=== PATIENT | female | born 1985 | race Caucasian/White ===

== ENCOUNTER 2024-05-15 13:36 | Outpatient (CLI) | payer OTHER | END 2024-05-15 14:35 | disposition home or self-care (01) | LOC: NST 13:36 | PROVIDERS: ATTEND Obstetrics & Gynecology Maternal & Fetal Medicine | DX: Z34.83 Encounter for supervision of other normal pregnancy, third trimester (principal) ==

== ENCOUNTER 2024-06-25 10:40 | Outpatient (CLI) | payer OTHER | END 2024-06-25 11:37 | disposition home or self-care (01) | LOC: NST 10:40 | PROVIDERS: ATTEND Obstetrics & Gynecology Gynecology | DX: Z34.83 Encounter for supervision of other normal pregnancy, third trimester (principal) ==

== ENCOUNTER 2024-07-02 10:06 | Inpatient (IN) | payer OTHER ==
[~2024-07-02] VITALS: Ht 157.5 cm; Wt 87.1 kg
[2024-07-18 16:36] VITALS: BP 125/70
[2024-07-18 16:55] VITALS: BP 125/70
[2024-07-18 16:55] LABS: HEMATOCRIT 30.2 % (36.0-45.00); HEMOGLOBIN 10.2 g/dL (12.0-15.00); MEAN CELL VOLUME 86.9 fL (80.00-100.00); MEAN CORPUSCULAR HEMOGLOBIN 29.2 pg (27.00-32.0); MEAN CORPUSCULAR HGB CONC 33.7 g/dl (32.0-36.0); PLATELET COUNT 255 K/uL (150-450); RED BLOOD COUNT 3.48 M/uL (4.00-6.00); RED CELL DISTRIBUTION WIDTH 15.6 % (11.5-14.5)
[2024-07-18 16:57] LABS: PH,URINE 5.5 (5.0-8.0); URINE APPEARANCE Clear; URINE BILIRRUBIN Negative (NEGATIVE); URINE BLOOD Negative; URINE COLOR Yellow; URINE GLUCOSE Negative (NEGATIVE); URINE KETONE Trace (NEGATIVE); URINE LEUKOCYTE Small; URINE NITRATE Negative; URINE PROTEIN 30 (NEGATIVE); URINE UROBILINOGEN 0.2 E.U./dl
[2024-07-18 17:00] LABS: URINE BACTERIA 1744.1 uL (0.0-1933); URINE EPITHELIAL CELLS 78.5 uL (0.0-38.8); URINE RBC 17.6 uL (0.0-20.8); URINE WBC 130.5 uL (0.0-23.2)
[2024-07-18] MEDS ORDERED: PRENATAL 19 TA1 EAC2 PO (17:10)
[2024-07-18] MEDS ORDERED: INTEGRA PLUS C1 EACH PO (17:10)
[2024-07-18 17:13] LABS: INR 0.95; PARTIAL THROMBOPLASTIN TIME 26.2 SECONDS (22.0-34.0); PROTHROMBIN TIME 10.4 SECONDS (9.0-11.5)
[2024-07-18] MEDS ORDERED: MORPHINE SULFATE 4 MG/ML CARTRIDGE IV PRN (17:15)
[2024-07-18] MEDS ORDERED: RINGERS SOLUTION,LACTATED 1,000 ML IV SCH (17:15)
[2024-07-18 17:20] LABS: ALBUMIN 2.8 gm/dL (3.4-5.0); BILIRUBIN TOTAL 0.13 mg/dL (0.3-1.2); CALCIUM 8.9 mg/dL (8.5-10.1); CREATININE SERUM 0.73 mg/dL (0.55-1.02); GFR 89.7; GLOBULINA 3.3 G/DL (2.4-3.5); POTASSIUM 3.66 mEq/L (3.5-5.1); TOTAL PROTEIN 6.1 gm/dL (6.4-8.2)
[2024-07-18 17:28] LABS: URINE CAST 0.58 uL (0.0-1.40)
[2024-07-18 17:32] LABS: URINE CRYSTALS MANY /HPF
[2024-07-18 19:18] VITALS: BP 119/74
[2024-07-18 23:16] VITALS: BP 119/72
[2024-07-19 04:00] VITALS: BP 100/62
[2024-07-19 07:28] VITALS: BP 123/73
[2024-07-19] MEDS ORDERED: OXYTOCIN 20 UNITS/500ML RL PIGGYBAG IV ONE (07:47)
[2024-07-19] MEDS ORDERED: OXYTOCIN 500 ML IV ONE (08:00)
[2024-07-19 11:40] VITALS: BP 113/62
[2024-07-19] MEDS ORDERED: CEFAZOLIN SODIUM 1,000 MG VIAL IV SCH (11:45)
[2024-07-19] MEDS ORDERED: CITRIC ACID/SODIUM CITRATE 30 ML BLIST.PACK PO SCH (11:45)
[2024-07-19] MEDS ORDERED: OXYTOCIN 10 UNITS/ML VIAL ONE ×2 (13:05→16:58)
[2024-07-19] MEDS ORDERED: MORPHINE SULFATE 4 MG/ML CARTRIDGE IV PRN (14:30)
[2024-07-19] MEDS ORDERED: OXYTOCIN 1,000 ML IV SCH (14:30)
[2024-07-19] MEDS ORDERED: ERYTHROMYCIN BASE OPHT 1GM EACH TUBE OP ONE (15:00)
[2024-07-19] MEDS ORDERED: OXYTOCIN 10 UNITS/ML VIAL IV ONE (15:00)
[2024-07-19 17:57] VITALS: BP 119/70
[2024-07-20 01:15] VITALS: BP 115/63
[2024-07-20 08:45] VITALS: BP 127/79
[2024-07-20] MEDS ORDERED: IBUprofen 400 MG TABLET PO SCH (09:00)
[2024-07-20] MEDS ORDERED: KETOROLAC TROMETHAMINE 10 MG TABLET PO SCH (12:00)
[2024-07-20] MEDS ORDERED: OxyCODONE HCL/APAP UD (PERCOCET) PO SCH (13:00)
[2024-07-20 13:02] VITALS: BP 117/75
[2024-07-20 14:05] LABS: HEMATOCRIT 29.8 % (36.0-45.00); HEMOGLOBIN 10.1 g/dL (12.0-15.00); MEAN CELL VOLUME 86.9 fL (80.00-100.00); MEAN CORPUSCULAR HEMOGLOBIN 29.3 pg (27.00-32.0); MEAN CORPUSCULAR HGB CONC 33.7 g/dl (32.0-36.0); PLATELET COUNT 249 K/uL (150-450); RED BLOOD COUNT 3.43 M/uL (4.00-6.00); RED CELL DISTRIBUTION WIDTH 15.5 % (11.5-14.5)
[2024-07-20 16:00] VITALS: BP 115/76
[2024-07-21 00:17] VITALS: BP 112/75
[2024-07-21 08:27] VITALS: BP 112/66
[2024-07-21 16:26] VITALS: BP 118/67; O2SAT 100
[2024-07-21 23:52] VITALS: BP 127/71
== END 2024-07-22 14:27 | disposition home or self-care (01) | DRG 788 ==
LOC: LDR 07-14 13:30 → OB/GYN 07-19 13:46
PROVIDERS: Obstetrics & Gynecology Maternal & Fetal Medicine; ADMIT Obstetrics & Gynecology Gynecology; ATTEND Obstetrics & Gynecology Gynecology
PROC: 4A1HXCZ Monitoring of Products of Conception, Cardiac Rate, External Approach (ICD-10-PCS; 2024-07-18)
PROC: 10D00Z1 Extraction of Products of Conception, Low, Open Approach (ICD-10-PCS; principal; 2024-07-19 12:30)
DX: O62.0 Primary inadequate contractions (principal); Z3A.40 40 weeks gestation of pregnancy; Z37.0 Single live birth; Z20.822 Contact with and (suspected) exposure to COVID-19

== ENCOUNTER 2024-07-15 09:30 | Outpatient (CLI) | payer OTHER | END 2024-07-15 11:09 | disposition home or self-care (01) | LOC: NST 09:30 | PROVIDERS: ATTEND Obstetrics & Gynecology | DX: Z34.83 Encounter for supervision of other normal pregnancy, third trimester (principal) ==

== ENCOUNTER 2024-07-16 08:08 | Outpatient (CLI) | payer OTHER | END 2024-07-16 09:31 | disposition home or self-care (01) | LOC: NST 08:08 | PROVIDERS: ATTEND Obstetrics & Gynecology | DX: Z34.83 Encounter for supervision of other normal pregnancy, third trimester (principal) ==